=== PATIENT | male | born 1955 | race Caucasian/White ===

== ENCOUNTER 2020-10-06 13:56 | Outpatient (CLI) | payer BC ==
--- NOTE | 2020-10-06 15:18 | MRI ---
THORACIC SPINE MRI WITHOUT CONTRAST: HISTORY: Radicular neuropathy. Right-sided mid back pain, x3 years. COMPARISON: None. FINDINGS: Heterogeneous T1 marrow signal intensity due to senescent change. Thoracic spine vertebral body heigh t is maintained. No fracture. No significant STIR hyperintensity to suggest ligamentous injury or vertebral body edema. Appropriate signal intensity in the visualized mediastinum, lung parenchyma, paraspinal muscles and s olid organs. The thoracic cord has a normal size and signal intensity. No cord malacia. No cord expansion. No abno rmal T2 hyperintensities in the thoracic cord. Conus medullaris terminates at the inferior aspect of T12. There is multilevel vacuum disc desiccation without significant loss of disc space height. There is n o significant central canal stenosis. T4-T5: Broad-based disc bulge with mild central canal stenosis. T5-T6: Broad-based disc bulge with mild central canal stenosis. T6-T7: Broad-based disc bulge with mild central canal stenosis. T10-T11: Broad-based disc bulge without significant mass effect upon the thecal sac. There is contact upon the anterior epidural fat. T11-T12: Broad-based disc bulge with contact upon the ventral epidural fat. Throughout the thoracic spine, neural foramina are patent. IMPRESSION: Multiple level disc desiccation without significant central canal stenosis or significant neural fora javier narrowing. Transcribed Date/Time: 10/06/2020 3:21 PM
--- NOTE | 2020-10-06 15:47 | MRI ---
MR the lumbar spine without contrast: 10/06/2020 History: Radiculopathy, neuropathy with back pain COMPARISON: None. TECHNIQUE: Multiplanar multisequence MR images were obtained of lumbar spine without IV contrast FINDINGS: On the basis of 5 lumbar type vertebral bodies, conus medullaris terminates at [id number] level. Sagittal STIR imaging demonstrates no focal area of osseous marrow edema. T12-L1:There is disc space narrowing with disc desiccation and mild disc bulge. There is mild bilater al facet hypertrophy with no significant central canal or neural foraminal stenosis. L1-2:Mild bilateral facet hypertrophy. There is disc space narrowing and disc desiccation with no sig nificant central canal or neural foraminal stenosis. L2-3:There is disc space narrowing with disc desiccation and mild anterior osteophyte formation. Ther e is mild disc bulge with mild bilateral facet hypertrophy, right greater than left. No significant central canal or neural foraminal stenosis. L3-4:There is bilateral facet hypertrophy. There is disc desiccation with no significant central ann-marie l or neural foraminal stenosis. L4-5:There is disc desiccation with mild disc bulge. There is bilateral facet hypertrophy, left great er than right. No significant central canal or neural foraminal stenosis. L5-S1:There is bilateral mild facet hypertrophy. There is disc space narrowing with disc desiccation and minimal disc bulge. No significant central canal or neural foraminal stenosis. Image retroperitoneal structures demonstrateno acute findings. IMPRESSION: Lumbar spine degenerative change as detailed above.
== END 2020-10-06 13:57 | disposition home or self-care (01) ==
LOC: BICMRI 13:56
PROVIDERS: ATTEND Family Medicine
DX: M54.10 Radiculopathy, site unspecified (principal); M47.816 Spondylosis without myelopathy or radiculopathy, lumbar region; M51.84 Other intervertebral disc disorders, thoracic region
CPT/HCPCS: 72146; 72148

== ENCOUNTER 2020-11-09 15:40 | Outpatient (CLI) | payer BC | END 2020-11-09 15:41 | disposition home or self-care (01) | LOC: DTY/OP 15:40 | PROVIDERS: ATTEND Surgery | DX: E66.01 Morbid (severe) obesity due to excess calories (principal) | CPT/HCPCS: 97802 ==

== ENCOUNTER 2020-12-21 16:21 | Outpatient (CLI) | payer BC ==
[2020-12-21 17:41] LABS: #Basophils 0.1 10x3/uL (0.0-0.2); #Eosinphils 0.2 10x3/uL (0.0-0.5); #Monocytes 0.7 10x3/uL (0.0-1.1); #Neutrophils 6.3 10x3/uL (1.5-8.4); %Basophils 0.7 % (0.0-2.0); %Eosinophils 2.1 % (0.0-6.0); %Lymphocytes 25.8 % (18.0-47.0); %Monocytes 7.1 % (0.0-10.0); Hemoglobin 17.2 g/dL (13.5-17.5); Mean Corpuscular Hemoglobin 31.2 pg (27.0-33.0); Mean Corpuscular Volume 89.3 fl (81.2-95.1); Mean Platelet Volume 10.1 fl (7.4-10.4); Platelet Count 271 10x3/uL (150-450); RBC Distribution Width 12.8 % (11.5-14.5); Red Blood Cell (RBC) Count 5.51 10x6/uL (4.32-5.72); White Blood Cell (WBC) Count 9.8 10x3/uL (3.5-10.5)
[2020-12-21 17:54] LABS: ALT (SGPT) 56 U/L (8-55); AST (SGOT) 28 U/L (5-34); Albumin 4.6 g/dL (3.4-4.8); Alkaline Phosphatase 78 U/L (40-110); Anion Gap 18 mmol/L (10-20); BUN (Urea Nitrogen) 27 mg/dL (8.4-25.7); Bilirubin, Total 0.7 mg/dL (0.2-1.2); Calc. Creatinine Clearance 0 mL/min (70-130); Calcium 10.4 mg/dL (7.8-10.44); Carbon Dioxide 25 mmol/L (23-31); Chloride 98 mmol/L (98-107); Globulin 2.5 g/dL (2.4-3.5); Glucose 86 mg/dL (80-115); Potassium 3.9 mmol/L (3.5-5.1); Protein, Total 7.1 g/dL (5.8-8.1); Sodium 137 mmol/L (136-145)
[2020-12-21 20:32] LABS: Hemoglobin A1c 5.5 % (4.0-6.0)
[2020-12-22 02:12] LABS: SARS-CoV-2 PCR by NAA Not Detected (NotDetected)
== END 2020-12-21 16:22 | disposition home or self-care (01) ==
LOC: LABBT 16:21
PROVIDERS: ATTEND Surgery
DX: Z01.818 Encounter for other preprocedural examination (principal); Z20.822 Contact with and (suspected) exposure to COVID-19
CPT/HCPCS: 71046; 80053; 83036; 85025; 87635; U0003; U0005

== ENCOUNTER 2020-12-21 16:30 | Inpatient (IN) | payer BC ==
[2020-12-24] MEDS ORDERED: Heparin 5,000 UNITS/ML VIAL ONE (06:11)
[2020-12-24] MEDS ORDERED: Lidocaine 1% w/Epinephrine 1:100K 20 ML VIAL ONE (06:52)
[2020-12-24] MEDS ORDERED: Bupivacaine 0.25% HCL 30 ML VIAL ONE (06:52)
[2020-12-24] MEDS ORDERED: Lidocaine 4% Topical Sol 50 ML BOT ONE (07:08)
[2020-12-24] MEDS ORDERED: Fentanyl 100 MCG/2 ML VIAL ONE ×3 (07:08→09:39)
[2020-12-24] MEDS ORDERED: PHENYLEPHRINE-NS 100 MCG/ML 10 ML SYRINGE ONE (07:35)
[2020-12-24] MEDS ORDERED: Dexamethasone 20 MG/5 ML VIAL ONE (07:35)
[2020-12-24] MEDS ORDERED: Rocuronium Bromide 10 MG/ML (10ML VIAL) ONE (07:35)
[2020-12-24] MEDS ORDERED: Glycopyrrolate 0.2 MG/ML 5 ML SYRINGE ONE (07:35)
[2020-12-24] MEDS ORDERED: Lidocaine 1% PF 5 ML VIAL ONE (07:35)
[2020-12-24] MEDS ORDERED: Ondansetron PF 4 MG/2 ML Vial ONE (07:35)
[2020-12-24] MEDS ORDERED: Succinylcholine 200 MG/10 ml SYRINGE FS ONE (07:35)
[2020-12-24] MEDS ORDERED: PROPOFOL 200 MG/20 ML VIAL ONE (07:35)
[2020-12-24] MEDS ORDERED: Ondansetron HCl/PF 4 MG/2 ML Vial IVP PRN (09:14)
[2020-12-24] MEDS ORDERED: Promethazine HCl 25 MG/ML VIAL IM PRN ×3 (09:14→12:05)
[2020-12-24] MEDS ORDERED: Promethazine HCl 25 MG/ML VIAL SLOW IVP PRN (09:14)
[2020-12-24] MEDS ORDERED: diphenhydrAMINE 25 MG CAP PO PRN (09:24)
[2020-12-24] MEDS ORDERED: diphenhydrAMINE 50 MG/ML VIAL IVP PRN ×2 (09:24→12:05)
[2020-12-24] MEDS ORDERED: Ondansetron PF 4 MG/2 ML Vial IVP PRN ×2 (09:24→12:05)
[2020-12-24] MEDS ORDERED: Zolpidem Tartrate 5 MG TAB PO PRN (09:24)
[2020-12-24] MEDS ORDERED: HYDROmorphone 10 mg/100 ml CADD IVPB PRN (09:24)
[2020-12-24] MEDS ORDERED: Naloxone HCl 0.4 mg/ml Vial IV PRN (09:24)
[2020-12-24] MEDS ORDERED: diphenhydrAMINE 50 MG/ML VIAL IM PRN (09:24)
[2020-12-24] MEDS ORDERED: Communication Order-Pharmacy FS SCH (09:30)
[2020-12-24] MEDS ORDERED: Promethazine HCl 25 MG/ML VIAL ONE (09:39)
[2020-12-24] MEDS ORDERED: HYDROmorphone 0.5 MG/0.5 ML SYRINGE ONE (09:53)
[2020-12-24] MEDS ORDERED: Dextrose 5% in Water 1,000 ML IV PRN (12:05)
[2020-12-24] MEDS ORDERED: Hydrocodone-Acetamin 15 ML UDCUP PO PRN (12:05)
[2020-12-24] MEDS ORDERED: Dextrose 50% Abboject 50 ML SYRINGE SLOW IVP PRN (12:05)
[2020-12-24] MEDS ORDERED: hydrALAZINE 20 MG/ML VIAL SLOW IVP PRN (12:05)
[2020-12-24] MEDS: D5 1/2 NS w/20 mEq KCL 1,000 ML IV SCH (12:27)
[2020-12-24 12:30] VITALS: BMI 33.8
[2020-12-24] MEDS ORDERED: Sodium Chloride 0.9% (PF) 10 ML VIAL FS PRN (12:30)
[2020-12-24] MEDS ORDERED: Pantoprazole 40 MG VIAL IVP SCH (12:30)
[2020-12-25] MEDS: D5 1/2 NS w/20 mEq KCL 1,000 ML IV SCH ×2 (00:07→05:37)
[2020-12-25 05:48] LABS: #Lymphocytes 1.7 thou/uL (1.20-3.40); #Monocytes 1.4 thou/uL (0.11-0.59); #Neutrophils 9.9 thou/uL (1.40-6.50); %Basophils 0.1 % (0.0-1.0); %Eosinophils 0.4 % (0.0-10.0); %Lymphocytes 13.2 % (21.0-51.0); %Monocytes 10.4 % (0.0-10.0); Hemoglobin 15.2 g/dL (14.0-18.0); Mean Corpuscular HGB CONC 33.8 g/dL (32.0-36.0); Mean Corpuscular Hemoglobin 31.8 pg (27.0-31.0); Mean Platelet Volume 7.7 fL (7.4-10.4); Platelet Count 201 thou/uL (130-400); RBC Distribution Width 12.5 % (11.5-14.5); Red Blood Cell (RBC) Count 4.79 mill/uL (4.70-6.10); White Blood Cell (WBC) Count 13.1 thou/uL (4.8-10.8)
[2020-12-25 06:16] LABS: Anion Gap 11 mmol/L (10-20); BUN (Urea Nitrogen) 15 mg/dL (8.4-25.7); Calc. Creatinine Clearance 101 mL/min (70-130); Carbon Dioxide 27 mmol/L (23-31); Chloride 101 mmol/L (98-107); Glucose 141 mg/dL (80-115); Potassium 4.3 mmol/L (3.5-5.1); Sodium 135 mmol/L (136-145)
[2020-12-25] MEDS ORDERED: Pantoprazole 40 MG VIAL IVP SCH (09:00)
[2020-12-25] MEDS ORDERED: Enoxaparin Sodium 40 MG/0.4 ML SYRINGE SC SCH (09:00)
[2020-12-25] MEDS ORDERED: Ramipril 5 MG CAP PO SCH (09:00)
[2020-12-25] MEDS ORDERED: Hydrocodone-Acetamin 15 ML UDCUP PO PRN ×2 (09:51→10:07)
[2020-12-25 11:29] VITALS: BP 133/87; TEMP 98
== END 2020-12-25 13:10 | disposition home or self-care (01) | DRG 621 ==
LOC: SURG A 12-24 06:01 → EDSTATUS 12-24 16:30
PROVIDERS: ADMIT Surgery; ATTEND Surgery
PROC: 0DB64Z3 Excision of Stomach, Percutaneous Endoscopic Approach, Vertical (ICD-10-PCS; principal; 2020-12-24)
PROC: 8E0W4CZ Robotic Assisted Procedure of Trunk Region, Percutaneous Endoscopic Approach (ICD-10-PCS; 2020-12-24)
DX: E66.01 Morbid (severe) obesity due to excess calories (principal); I10 Essential (primary) hypertension; E78.5 Hyperlipidemia, unspecified; Z68.33 Body mass index [BMI] 33.0-33.9, adult; Z79.82 Long term (current) use of aspirin
CPT/HCPCS: 36415; 71046; 80048; 80053; 83036; 85025; 87635; 88307; C9113; J0690; J1100; J1170; J1644; J1650; J2405; J2550; J2704; J3010; J3480; S0020; U0003; U0005

== ENCOUNTER 2022-11-21 12:16 | Emergency (ER) | payer BC ==
[2022-11-21 12:59] LABS: #Eosinphils 0.1 thou/uL (0.0-0.7); #Lymphocytes 1.2 thou/uL (1.20-3.40); #Monocytes 0.4 thou/uL (0.11-0.59); #Neutrophils 4.4 thou/uL (1.40-6.50); %Basophils 0.4 % (0.0-1.0); %Lymphocytes 19.7 % (21.0-51.0); %Monocytes 6.1 % (0.0-10.0); %Neutrophils 72.8 % (42.0-75.0); Hemoglobin 14.4 g/dL (14.0-18.0); Mean Corpuscular HGB CONC 35.9 g/dL (32.0-36.0); Mean Corpuscular Hemoglobin 33.6 pg (27.0-31.0); Mean Corpuscular Volume 93.7 fl (78.0-98.0); Mean Platelet Volume 7.4 fL (7.4-10.4); Platelet Count 186 10x3/uL (130-400); RBC Distribution Width 12.8 % (11.5-14.5); Red Blood Cell (RBC) Count 4.28 mill/uL (4.70-6.10); White Blood Cell (WBC) Count 6.1 10x3/uL (4.8-10.8)
[2022-11-21 13:14] LABS: ALT (SGPT) 19 U/L (8-55); AST (SGOT) 19 U/L (5-34); Albumin 4.5 g/dL (3.4-4.8); Alkaline Phosphatase 97 U/L (40-110); Anion Gap 17 mmol/L (10-20); BUN (Urea Nitrogen) 15 mg/dL (8.4-25.7); Bilirubin, Total 0.7 mg/dL (0.2-1.2); Calc. Creatinine Clearance 0 mL/min (70-130); Carbon Dioxide 19 mmol/L (23-31); Chloride 108 mmol/L (98-107); Estimated GFR 85; Globulin 2.8 g/dL (2.4-3.5); Glucose 103 mg/dL (80-115); Potassium 4.7 mmol/L (3.5-5.1); Protein, Total 7.3 g/dL (5.8-8.1); Sodium 139 mmol/L (136-145)
[2022-11-21] MEDS ORDERED: Nitroglycerin 2% Ointment 1 INCH/1 GM Packet ONE (14:46)
[2022-11-21] MEDS ORDERED: Ramipril 5 MG CAP PO SCH (15:30)
== END 2022-11-21 15:38 | disposition home or self-care (01) ==
LOC: ERS 12:16
DX: I10 Essential (primary) hypertension (principal); Z79.82 Long term (current) use of aspirin
CPT/HCPCS: 36415; 70450; 71045; 80053; 83880; 84484; 85025; 93005